=== PATIENT | male | born 1965 | race Caucasian/White ===

== ENCOUNTER 2016-07-19 20:34 | Emergency (ER) | payer OTHER ==
[~2016-07-19] VITALS: Ht 190.5 cm; Wt 95.3 kg
[~2016-07-19 20:34] MED LIST: MIRALAX17 G2 ORAL
[2016-07-19] MEDS ORDERED: COLACE100 MG ORAL (21:29)
[2016-07-19] MEDS ORDERED: Fleet's Enema 133ml RECTAL ONE (21:30)
[2016-07-19 21:33] VITALS: BP 132/75
[2016-07-19 21:35] VITALS: BP 132/75
--- NOTE | 2016-07-20 02:10 | Emergency Room Report ---
History of Present Illness General Chief Complaint: Abdominal Pain Source: Patient Present Illness HPI 50 YOM with 1 week of decreased stool output, right sided abd pain, early satiety. Denies fever/chills, nausea/vomiting, diarrhea. Endorses not drinking enough water or eating "healthy" foods. Has had constipation previously. Took Miralax OTC and was able to produce "small" amount of stool. Still producing gas. No previous abd/pelvic surgery. No history of narcotic abuse. Allergies: Coded Allergies: AZITHROMYCIN (Unverified Allergy, Unknown, 11/09/14) Patient History Past Medical History: HIV, other - constipation Past Surgical History: none Pertinent Family History: none Social History: Denies: alcohol use, drug use, smoking Immunizations: UTD Reviewed Nursing Documentation: PMH: Agreed, PSxH: Agreed Nursing Documentation-PMH Hx Hypertension: Yes Review of Systems All Other Systems: negative except mentioned in HPI Physical Exam Vital Signs Date Time Temp Pulse Resp B/P Pulse Ox O2 Delivery O2 Flow Rate FiO2 07/19/16 20:43 97.5 58 16 145/90 98 07/19/16 21:33 Room Air Sp02 EP Interpretation: reviewed, normal General Appearance: normal inspection, well appearing, no apparent distress, alert Head: atraumatic ENT: normal ENT inspection, hearing grossly normal, normal voice Neck: normal inspection, full range of motion, supple, no bony tend Respiratory: normal inspection, lungs clear, normal breath sounds, no respiratory distress, no retraction, no wheezing Cardiovascular #1: regular rate, rhythm, no edema Gastrointestinal: normal inspection, normal bowel sounds, non tender, soft, non -distended, no guarding, no hernia, other - Dullness to tympany, hyperactive bowel sounds Genitourinary: no CVA tenderness Musculoskeletal: normal inspection, back normal, normal range of motion, Leonor' s Sign negative Neurologic: normal inspection, alert, oriented x3, responsive, market development director III-XII nml as tested, speech normal Psychiatric: normal inspection, judgement/insight normal, mood/affect normal Medical Decision Making Diagnostic Impression: Primary Impression: Constipation Qualified Codes: K59.00 - Constipation, unspecified ER Course Likely constipation d/t poor diet, poor water intake HPI and PE c/w constipation VSS. Afebrile. Abd relatively non focal, dull to tympany DC with Fleets Enema to use at home Rx Colace Advised increased water intake, green vegetables, PMD followup Last Vital Signs Date Time Temp Pulse Resp B/P Pulse Ox O2 Delivery O2 Flow Rate FiO2 07/19/16 21:35 97.1 62 14 132/75 100 Room Air Status: improved Disposition: HOME, SELF-CARE Condition: Improved Scripts Docusate Sodium* (COLACE*) 100 Mg Capsule 100 MG ORAL TWICE A DAY for 14 Days, #30 CAP Prov: SEPIDEH MULLINS M.D. 07/19/16 Referrals: NON PHYSICIAN (PCP) Patient Instructions: Constipation, Adult, [id number] Additional Instructions: - Use Fleets enema as prescribed at home - Drink more water, eat more green leafy vegetables - Take stool softener Colace twice daily until bowel movements normalize - Return to ER for further testing if worsening pain, vomiting, fever despite using Fleets SEPIDEH MULLINS M.D. Jul 20, 2016 02:10
== END 2016-07-19 21:35 | disposition home or self-care (01) ==
LOC: EMR 21:20
DX: K59.00 Constipation, unspecified (principal); I10 Essential (primary) hypertension; Z88.1 Allergy status to other antibiotic agents
CPT/HCPCS: 99283

== ENCOUNTER 2016-09-12 16:44 | Emergency (ER) | payer OTHER ==
[~2016-09-12] VITALS: Ht 190.5 cm; Wt 95.7 kg
[~2016-09-12 16:44] MED LIST changes: +COLACE100 MG ORAL
[2016-09-12 17:20] VITALS: BP 175/95
[2016-09-12 19:20] VITALS: BP 182/91
--- NOTE | 2016-09-12 21:11 | Emergency Room Report ---
History of Present Illness General Chief Complaint: General Complaint Source: Patient Present Illness Allergies: Coded Allergies: AZITHROMYCIN (Unverified Allergy, Unknown, 11/09/14) Nursing Documentation-[facility] Past Medical History: No History, Except For Hx Hypertension: Yes Physical Exam Vital Signs Date Time Temp Pulse Resp B/P Pulse Ox O2 Delivery O2 Flow Rate FiO2 09/12/16 17:10 97.9 52 14 195/81 99 Room Air Medical Decision Making Diagnostic Impression: Primary Impression: Lymphedema Last Vital Signs Date Time Temp Pulse Resp B/P Pulse Ox O2 Delivery O2 Flow Rate FiO2 09/12/16 17:20 45 175/95 100 Room Air 09/12/16 17:10 97.9 14 Disposition: HOME, SELF-CARE Condition: Stable Referrals: AUDREY CAICEDO D.O. (PCP) ANNA LEMOS D.O. September 12, 2016 21:11
[2016-09-12 21:15] VITALS: BP 153/85
--- NOTE | 2016-09-14 12:08 | Diagnostic Imaging Report ---
APPROVED REPORT CPT Code: 48688 Present Symptoms Lower Extremity Pain: Bilateral Lower Extremity Edema: Bilateral BILATERAL: Imaging reveals a patent deep venous system bilaterally. There is no evidence of thrombus within the femoral, popliteal or tibial segments. The greater saphenous veins are also within normal limits. Doppler indicates normal spontaneous flow within these segments.
== END 2016-09-12 21:15 | disposition home or self-care (01) ==
LOC: EMR 17:35
DX: I89.0 Lymphedema, not elsewhere classified (principal); I10 Essential (primary) hypertension; Z88.8 Allergy status to other drugs, medicaments and biological substances
CPT/HCPCS: 93970; 99284

== ENCOUNTER 2017-06-17 14:19 | Emergency (ER) | payer OTHER ==
[~2017-06-17] VITALS: Ht 188 cm; Wt 97.5 kg
--- NOTE | 2017-06-17 14:31 | Emergency Room Report ---
History of Present Illness General Chief Complaint: Chest Pain Source: Patient Present Illness [facility] Patient material male presented after increased substernal chest pain and palpitations. Patient recently been started on antibiotics after infection to testicular area. Patient has prior history of HIV. He had been taking Bactrim and rifampin. He had subjective fever and chills. He had began draining. Patient had been scheduled to follow up with urology. He reported having onset of pain just prior to arrival.He denies any productive cough. Allergies: Coded Allergies: No Known Allergies (Unverified , 06/17/17) Patient History Reviewed Nursing Documentation: PMH: Agreed, PSxH: Agreed Nursing Documentation-PMH Past Medical History: No History, Except For Hx Cardiac Problems: Yes Hx Hypertension: Yes Hx COPD: No - HIV Review of Systems All Other Systems: negative except mentioned in HPI Physical Exam Vital Signs Date Time Temp Pulse Resp B/P (MAP) Pulse Ox O2 Delivery O2 Flow Rate FiO2 06/17/17 14:24 97.7 95 20 148/78 98 Room Air Sp02 EP Interpretation: reviewed, normal General Appearance: normal inspection, well appearing, no apparent distress, alert, GCS 15 Head: atraumatic ENT: normal ENT inspection, hearing grossly normal, normal voice Neck: normal inspection, full range of motion, supple, no bony tend Respiratory: normal inspection, lungs clear, normal breath sounds, no respiratory distress, no retraction, no wheezing Cardiovascular #1: regular rate, rhythm, no edema Gastrointestinal: normal inspection, normal bowel sounds, non tender, soft, no guarding, no hernia Genitourinary: no CVA tenderness, other - small scrotal abscess, spontaneously draining Musculoskeletal: normal inspection, back normal, normal range of motion Neurologic: normal inspection, alert, responsive, speech normal Psychiatric: normal inspection, judgement/insight normal, mood/affect normal Skin: normal inspection, normal color, no rash Medical Decision Making Diagnostic Impression: Primary Impression: Infection of scrotum Additional Impression: Chest pain ER Course Patient presented for chest pain. Differential diagnosis included but was not limited to acute coronary syndrome, pulmonary embolism, pneumonia, aortic dissection, shingles, pneumothorax, aortic dissection, esophageal rupture, pericarditis. Because of complexity of patient's case laboratory testing and imaging studies were ordered. Laboratory studies were notable for normal white blood count with monocyte predominance. The patient was given IV fluids as well as IV antibiotics. The patient noted have some elevation of his lactic acid level consistent with infection and abscess. Dr. Antonio Gutierrez who is patient's primary care physician will arrange for home health antibiotic and IV fluids.The patient is advised to return if he felt worsening of condition of shortness of breath Labs Test 06/17/17 14:35 06/17/17 15:00 06/17/17 15:40 White Blood Count 4.9 K/UL (4.8-10.8) Red Blood Count 4.79 M/UL (4.70-6.10) Hemoglobin 16.3 G/DL (14.2-18.0) Hematocrit 47.1 % (42.0-52.0) Mean Corpuscular Volume 98 FL (80-99) Mean Corpuscular Hemoglobin 34.1 PG (27.0-31.0) Mean Corpuscular Hemoglobin Concent 34.7 G/DL (32.0-36.0) Red Cell Distribution Width 11.5 % (11.6-14.8) Platelet Count 157 K/UL (150-450) Mean Platelet Volume 8.8 FL (6.5-10.1) Neutrophils (%) (Auto) 50.9 % (45.0-75.0) Lymphocytes (%) (Auto) 36.6 % (20.0-45.0) Monocytes (%) (Auto) 10.2 % (1.0-10.0) Eosinophils (%) (Auto) 1.2 % (0.0-3.0) Basophils (%) (Auto) 1.1 % (0.0-2.0) Prothrombin Time 10.1 SEC (9.30-11.50) Prothromb Time International Ratio 1.0 (0.9-1.1) Activated Partial Thromboplast Time 29 SEC (23-33) Sodium Level 141 MMOL/L (136-145) Potassium Level 3.1 MMOL/L (3.5-5.1) Chloride Level 100 MMOL/L (98-107) Carbon Dioxide Level 29 MMOL/L (21-32) Anion Gap 12 mmol/L (5-15) Blood Urea Nitrogen 24 mg/dL (7-18) Creatinine 1.8 MG/DL (0.55-1.30) Estimat Glomerular Filtration Rate 39.8 mL/min (>60) Glucose Level 115 MG/DL (74-106) Calcium Level 9.8 MG/DL (8.5-10.1) Phosphorus Level 2.9 MG/DL (2.5-4.9) Magnesium Level 1.8 MG/DL (1.8-2.4) Total Bilirubin 0.8 MG/DL (0.2-1.0) Aspartate Amino Transf (AST/SGOT) 38 U/L (15-37) Alanine Aminotransferase (ALT/SGPT) 35 U/L (12-78) Alkaline Phosphatase 78 U/L (46-116) Total Creatine Kinase 403 U/L (26-308) Creatine Kinase MB 2.9 NG/ML (0.0-3.6) Creatine Kinase MB Relative Index 0.7 Troponin I 0.000 ng/mL (0.000-0.056) Total Protein 7.6 G/DL (6.4-8.2) Albumin 3.7 G/DL (3.4-5.0) Globulin 3.9 g/dL Albumin/Globulin Ratio 0.9 (1.0-2.7) Urine Color Gayle Urine Appearance Clear Urine pH 7 (4.5-8.0) Urine Specific [place] 1.010 (1.005-1.035) Urine Protein 1+ (NEGATIVE) Urine Glucose (UA) Negative (NEGATIVE) Urine Ketones Negative (NEGATIVE) Urine Occult Blood 1+ (NEGATIVE) Urine Nitrite Negative (NEGATIVE) Urine Bilirubin Negative (NEGATIVE) Urine Ictotest Positive Urine Urobilinogen 4 MG/DL (0.0-1.0) Urine Leukocyte Esterase 1+ (NEGATIVE) Urine RBC 0-2 /HPF (0 - 0) Urine WBC 0-2 /HPF (0 - 0) Urine Squamous Epithelial Cells None /LPF (NONE/OCC) Urine Bacteria Few /HPF (NONE) Urine Mucus Moderate /LPF (NONE/OCC) Lactic Acid Level 1.10 mmol/L (0.66-2.22) EKG Diagnostic Results Rate: normal - 95 Rhythm: NSR ST Segments: no acute changes Last Vital Signs Date Time Temp Pulse Resp B/P (MAP) Pulse Ox O2 Delivery O2 Flow Rate FiO2 06/17/17 14:24 97.7 95 20 148/78 98 Room Air Status: improved Disposition: HOME, SELF-CARE Condition: Stable Ulices Gray Jun 17, 2017 14:31
[2017-06-17] MEDS ORDERED: cefTRIAXone 1 GM in NS 55 ML IVPB ONE (14:45)
[2017-06-17] MEDS ORDERED: Ketorolac 30mg Inj IV ONE (14:45)
[2017-06-17 15:03] VITALS: BP 143/73
[2017-06-17 15:05] LABS: BASOPHILS % (AUTO) 1.1 % (0.0-2.0); EOSINOPHILS % (AUTO) 1.2 % (0.0-3.0); HEMATOCRIT 47.1 % (42.0-52.0); HEMOGLOBIN 16.3 G/DL (14.2-18.0); LYMPHOCYTES % (AUTO) 36.6 % (20.0-45.0); MEAN CORPUSCULAR VOLUME 98 FL (80-99); MONOCYTES % (AUTO) 10.2 % (1.0-10.0); NEUTROPHILS % (AUTO) 50.9 % (45.0-75.0); PLATELET COUNT 157 K/UL (150-450); RED BLOOD COUNT 4.79 M/UL (4.70-6.10); RED CELL DISTRIBUTION WIDTH 11.5 % (11.6-14.8); WHITE BLOOD COUNT 4.9 K/UL (4.8-10.8)
[2017-06-17 15:13] LABS: ANION GAP 12 mmol/L (5-15); BLOOD UREA NITROGEN 24 mg/dL (7-18); CALCIUM 9.8 MG/DL (8.5-10.1); CARBON DIOXIDE 29 MMOL/L (21-32); CHLORIDE 100 MMOL/L (98-107); CREATININE 1.8 MG/DL (0.55-1.30); POTASSIUM 3.1 MMOL/L (3.5-5.1); SODIUM 141 MMOL/L (136-145)
[2017-06-17 15:16] LABS: APPEARANCE,URINE CLEAR; BILIRUBIN, URINE NEGATIVE (NEGATIVE); COLOR,URINE AMBER; GLUCOSE, URINE (UA) NEGATIVE (NEGATIVE); KETONES,URINE NEGATIVE (NEGATIVE); PH,URINE 7 (4.5-8.0); PROTEIN,URINE 1+ (NEGATIVE)
[2017-06-17 15:17] LABS: LEUKOCYTE ESTERASE ,URINE 1+ (NEGATIVE); NITRITE,URINE NEGATIVE (NEGATIVE); UROBILINOGEN,URINE 4 MG/DL (0.0-1.0)
[2017-06-17 15:27] LABS: ALANINE AMINOTRANSFERASE 35 U/L (12-78); ALBUMIN 3.7 G/DL (3.4-5.0); ALBUMIN/GLOBULIN RATIO 0.9 (1.0-2.7); ALKALINE PHOSPHATASE 78 U/L (46-116); ASPARTATE AMINO TRANSFERASE 38 U/L (15-37); BILIRUBIN,TOTAL 0.8 MG/DL (0.2-1.0); CKMB 2.9 NG/ML (0.0-3.6); CREATINE KINASE 403 U/L (26-308)
[2017-06-17 15:41] LABS: PHOSPHORUS 2.9 MG/DL (2.5-4.9)
[2017-06-17 17:04] VITALS: BP 137/72
[2017-06-17] MEDS ORDERED: Vit D PO (17:30)
[2017-06-17] MEDS ORDERED: Ascorbic Acid 500mg tab ORAL SCH (17:30)
[2017-06-17] MEDS ORDERED: [UNRECOGNIZED DRUG - OTHER] PO (17:30)
[2017-06-17] MEDS ORDERED: RIFADIN150 MG ORAL (17:30)
[2017-06-17] MEDS ORDERED: testosterone cream TP (17:30)
[2017-06-17] MEDS ORDERED: SULFAMETHOXAZO480 ML ORAL (17:30)
[2017-06-17] MEDS ORDERED: DEXILANT30 MG ORAL (17:30)
[2017-06-17] MEDS ORDERED: EDARBI40 MG ORAL (17:30)
[2017-06-17] MEDS ORDERED: DESCOVY 200-251 EACH PO (17:30)
[2017-06-17] MEDS ORDERED: [UNRECOGNIZED DRUG - OTHER] PO (17:30)
[2017-06-17] MEDS ORDERED: BYSTOLIC2.5 MG ORAL (17:30)
[2017-06-17 18:07] VITALS: BP 135/72
[2017-06-17 18:08] VITALS: BP 135/72
--- NOTE | 2017-06-18 10:52 | Diagnostic Imaging Report ---
Indication: Dyspnea Comparison: None A single view chest radiograph was obtained. Findings: Cardiomediastinal appearance is within normal limits for age. Left clavicle fixation hardware noted. Pulmonary vascularity is appropriate. The diaphragmatic contour is smooth and costophrenic angles are sharp. No pleural effusions are identified. The bones are unremarkable. Impression: No acute findings
--- NOTE | 2017-06-18 19:32 | Cardiology Report ---
APPROVED REPORT EKG Measurement Heart [id number] Normal sinus rhythm Nonspecific ST and T wave abnormality Prolonged QT Abnormal ECG
== END 2017-06-17 18:18 | disposition home or self-care (01) ==
LOC: MERGE 14:25 → EMR 14:25 → EDBEDREQ 16:22 → CANBEDREQ 17:35 → EMR 18:18
DX: R07.9 Chest pain, unspecified (principal); N49.2 Inflammatory disorders of scrotum; I10 Essential (primary) hypertension
CPT/HCPCS: 36415; 71045; 80053; 81003; 82550; 82553; 83605; 83735; 84100; 84484; 85025; 85610; 85730; 87040; 93005; 96361; 96365; 96375; 99284; J0696; J1885; J8499

== ENCOUNTER 2017-07-19 07:39 | Outpatient (CLI) | payer OTHER ==
[~2017-07-19 07:39] MED LIST changes: +BYSTOLIC2.5 MG ORAL; +DESCOVY 200-251 EACH PO; +DEXILANT30 MG ORAL; +EDARBI40 MG ORAL; +RIFADIN150 MG ORAL; +SULFAMETHOXAZO480 ML ORAL; +Vit D PO; +[UNRECOGNIZED DRUG - OTHER] PO; +[UNRECOGNIZED DRUG - OTHER] PO; +testosterone cream TP
--- NOTE | 2017-07-19 14:13 | Diagnostic Imaging Report ---
Indication: Reason For Exam: PAIN Technique: Axial single shot fast spin echo breath hold, coronal single shot fast spin-echo breath hold, axial T2 FRFSE fat-saturated, axial 2-D FIESTA fat-saturated, axial 3-D dual echo breath-hold, precontrast axial and postcontrast axial and coronal water weighted axial LAVA FLEX images of the abdomen Comparison: None. Reference is made to a noncontrast CT abdomen and pelvis dated 11/23/2014 Findings: There is some image degradation on a few sequences by motion artifact. The pancreas appears normal in size, and does not demonstrate edema or peripancreatic fluid The liver, gallbladder, bile ducts, spleen, adrenals, kidneys unremarkable. MRI is not optimal for evaluation of the enteric structures, but no gross bowel abnormality is demonstrated. The abdominal aorta and proximal branches are normal in caliber. The included lung bases are not assessed on MRI but appear grossly unremarkable. Impression: Negative
--- NOTE | 2017-07-19 14:27 | Diagnostic Imaging Report ---
Indication: Abdominal and pelvic pain. Abnormal amylase and lipase Technique: Sagittal T2 FRFSE, axial T2 FRFSE, axial and coronal T2 FRFSE fat sat, axial T1 FSE, axial T1 FSE fat sat, axial T1 fat saturated postcontrast images obtained of the pelvis Comparison: Reference made to CT abdomen and pelvis dated 11/10/2014 Findings: No pelvic mass or adenopathy. Unremarkable bladder. Mildly prominent prostate. Evaluation of the enteric structures is limited on MR imaging. The bones are unremarkable. Impression: No definite acute abnormality
== END 2017-07-19 09:39 | disposition home or self-care (01) ==
LOC: MRI 07:39
DX: R10.9 Unspecified abdominal pain (principal); R10.2 Pelvic and perineal pain
CPT/HCPCS: 72197; 74183; A9585